=== PATIENT | female | born 1960 | race Caucasian/White ===

== ENCOUNTER → 2024-11-02 | Outpatient (CLI) | payer BC ==
[~2024-11-02] MED LIST: CALC-1038 PO; CETI10CA5 PO; FLAX100030 PO; MIRALAX PO; MULT1CAP32 PO
--- NOTE | 2024-11-02 11:22 | HMCIMG ---
DEXA BONE DENSITY SURVEY HISTORY: Postmenopausal COMPARISON: None FINDINGS: Bone densitometry study was performed. Bone mineral density of the lumbar spine is 0.987 gram per centimeter square which corresponds to a T score of -0.5 and a Z score of 1.3. Bone mineral density of the left hip is 0.537 grams per centimeter square which corresponds to a T score of -0.8 and a Z score of 0.9. IMPRESSION: 1. Normal bone mineral density of the lumbar spine and left hip.
== END | disposition home or self-care (01) ==
LOC: RAH 08:42
PROVIDERS: ATTEND Family Medicine
DX: Z78.0 Asymptomatic menopausal state (principal)
CPT/HCPCS: 77080